=== PATIENT | male | born 1985 | race Caucasian/White ===

== ENCOUNTER 2016-05-22 02:48 | Emergency (ER) | payer SELFPAY ==
[~2016-05-22] VITALS: Ht 180.3 cm; Wt 94.3 kg
[~2016-05-22 02:48] MED LIST: AFRIN,GENASAL D15 ML BOTH NARES; HYDROCODON-ACE1 EAC7 PO; MULTIVITAMIN1 EAC2 PO; NAPROXEN500 MG PO; NOHOMEMEDS; PREDNISONE20 MG PO; ZITHROMAX500 MG PO
[2016-05-22 03:50] LABS: MCH 30.7 PG (29.0-34.0); MCHC 34.5 G/DL (30.0-36.0); MEAN PLAT.VOLUME 10.1 uM^3 (9.0-12.4); PLATELET COUNT 269 K/uL (156-360); RBC DIS.WIDTH-CV 12.6 % (11.8-14.6); RBC DIS.WIDTH-SD 39.9 % (39-53); RED BLOOD COUNT 4.27 M/uL (4.00-5.50)
[2016-05-22 04:05] LABS: CHLORIDE 106 mEq/L (99-109); POTASSIUM 4.3 mEq/L (3.7-5.4); SODIUM 142 mEq/L (136-147)
[2016-05-22 04:08] LABS: GLUCOSE 118 mg/dL (70-99)
[2016-05-22 04:09] LABS: ANION GAP 8 MEQ/L (2-14); TOTAL BILIRUBIN 0.4 mg/dL (0.0-1.0)
[2016-05-22 04:10] LABS: SERUM ETHYL ALCOHOL < 10 mg/dL
[2016-05-22 04:11] LABS: GFR ESTIMATE (CALCULATED) > 59 mL/min/
[2016-05-22 04:12] LABS: ALKALINE PHOSPHATASE 52 IU/L (3-129)
[2016-05-22 04:13] LABS: UREA NITROGEN (BUN) 13 mg/dL (9-23)
[2016-05-22 04:15] LABS: SALICYLATE < 5.0 MG/DL (15-30)
[2016-05-22 04:33] VITALS: BP 113/60
== END 2016-05-22 04:36 | disposition home or self-care (01) ==
LOC: EME → EDBD 02:48 → EME 02:48
PROVIDERS: Emergency Medicine
DX: T40.601A Poisoning by unspecified narcotics, accidental (unintentional), initial encounter (principal); F19.10 Other psychoactive substance abuse, uncomplicated; F12.90 Cannabis use, unspecified, uncomplicated
CPT/HCPCS: 80053; 81003; 85027; 99281; 99283; G0480; J2310

== ENCOUNTER 2017-05-24 11:30 | Emergency (ER) | payer OTHER ==
[~2017-05-24] VITALS: Ht 180.3 cm; Wt 91.9 kg
[2017-05-24] MEDS ORDERED: VALTREX1000 MG PO (14:30)
[2017-05-24 14:47] VITALS: BP 122/60
== END 2017-05-24 14:53 | disposition home or self-care (01) ==
LOC: EME 11:30
DX: B02.9 Zoster without complications (principal); R07.89 Other chest pain; F17.200 Nicotine dependence, unspecified, uncomplicated
CPT/HCPCS: 71046; 99281; 99283; J1885

== ENCOUNTER 2017-11-07 21:02 | Emergency (ER) | payer OTHER ==
[~2017-11-07] VITALS: Ht 180.3 cm; Wt 102.3 kg
[~2017-11-07 21:02] MED LIST changes: +VALTREX1000 MG PO
[2017-11-07] MEDS ORDERED: NAPROXEN500 MG PO (22:09)
[2017-11-07 22:19] VITALS: BP 127/73
== END 2017-11-07 22:20 | disposition home or self-care (01) ==
LOC: EME 21:02 → RME 21:02
DX: S90.01XA Contusion of right ankle, initial encounter (principal); X58.XXXA Exposure to other specified factors, initial encounter; Y93.61 Activity, american tackle football
CPT/HCPCS: 73610; 73630; 99281; 99284